=== PATIENT | male | born 1950 | race Caucasian/White ===

== ENCOUNTER 2016-06-10 08:42 | Day surgery (SDC) | payer MEDICARE, BC ==
[~2016-06-10 08:42] MED LIST: CENTRUM SILVER1 EAC1 PO; GLUCOPHAGE1000 MG PO; LEVITRA20 MG PO; MUCINEX600 MG PO; PRAVACHOL40 MG PO; PRILOSEC20 MG PO; VITAMIN E400 UNI2 PO; ZYRTEC10 MG PO
== END 2016-06-10 11:50 | disposition short-term general hospital (02) ==
LOC: SURGOP 08:42
PROC: 0DJD8ZZ Inspection of Lower Intestinal Tract, Via Natural or Artificial Opening Endoscopic (ICD-10-PCS; principal; 2016-06-10)
PROC: 0DB68ZX Excision of Stomach, Via Natural or Artificial Opening Endoscopic, Diagnostic (ICD-10-PCS; 2016-06-10)
PROC: 0DB48ZX Excision of Esophagogastric Junction, Via Natural or Artificial Opening Endoscopic, Diagnostic (ICD-10-PCS; 2016-06-10)
DX: Z12.11 Encounter for screening for malignant neoplasm of colon (principal); K29.50 Unspecified chronic gastritis without bleeding; K21.0 Gastro-esophageal reflux disease with esophagitis; K59.09 Other constipation; K21.9 Gastro-esophageal reflux disease without esophagitis; E11.9 Type 2 diabetes mellitus without complications; E78.5 Hyperlipidemia, unspecified; M19.90 Unspecified osteoarthritis, unspecified site; N52.9 Male erectile dysfunction, unspecified; Z90.49 Acquired absence of other specified parts of digestive tract; Z90.79 Acquired absence of other genital organ(s); Z79.899 Other long term (current) drug therapy; Z85.828 Personal history of other malignant neoplasm of skin; Z98.890 Other specified postprocedural states; Z80.3 Family history of malignant neoplasm of breast; Z82.3 Family history of stroke; Z82.49 Family history of ischemic heart disease and other diseases of the circulatory system
CPT/HCPCS: 00810; 43239; G0121

== ENCOUNTER 2016-08-15 18:29 | Emergency (ER) | payer MEDICARE, BC ==
[~2016-08-15] VITALS: Ht 175.3 cm; Wt 90.7 kg
== END 2016-08-15 19:06 | disposition short-term general hospital (02) ==
LOC: ER 18:29
DX: H92.01 Otalgia, right ear (principal); J30.9 Allergic rhinitis, unspecified; Z79.82 Long term (current) use of aspirin; Z79.84 Long term (current) use of oral hypoglycemic drugs; Z79.899 Other long term (current) drug therapy

== ENCOUNTER → 2016-08-24 | Outpatient (CLI) | payer MEDICARE, BC | END | disposition short-term general hospital (02) | LOC: CLUROL 07-27 19:32 → CLPULM 10:04 | DX: J18.9 Pneumonia, unspecified organism (principal); G47.33 Obstructive sleep apnea (adult) (pediatric); R91.1 Solitary pulmonary nodule; R09.81 Nasal congestion ==

== ENCOUNTER → 2016-09-07 | Outpatient (CLI) | payer MEDICARE, BC | END | disposition short-term general hospital (02) | LOC: CLUROL 11:16 | DX: Z08 Encounter for follow-up examination after completed treatment for malignant neoplasm (principal); N52.9 Male erectile dysfunction, unspecified; G20 Parkinson's disease; Z85.46 Personal history of malignant neoplasm of prostate; Z90.79 Acquired absence of other genital organ(s) ==

== ENCOUNTER → 2016-09-22 | Outpatient (CLI) | payer MEDICARE, BC | END | disposition short-term general hospital (02) | LOC: CLNEUR 09:56 | DX: G20 Parkinson's disease (principal); R41.3 Other amnesia ==